=== PATIENT | female | born 1970 | race Caucasian/White ===

== ENCOUNTER 2017-09-04 13:56 | Inpatient (IN) | payer OTHER ==
[~2017-09-04] VITALS: Ht 162.6 cm; Wt 104.0 kg
[2017-10-15] VITALS (11 sets, daily range): BP systolic 96–134; BP diastolic 52–92; PULSE 64–88; TEMP 97.8–98.3
[2017-10-16 00:01] VITALS: BP 109/62; PULSE 67; TEMP 98
[2017-10-16 03:59] VITALS: BP 113/63; PULSE 69; TEMP 97.6
[2017-10-16 06:20] LABS: HEMATOCRIT 29.2 % (37.0-47.0); HEMOGLOBIN 9.3 g/dl (12.5-16.0)
[2017-10-16 07:41] VITALS: BP 96/59; PULSE 69; TEMP 98.7
[2017-10-16] MEDS ORDERED: VITAMIN D31000 I1 PO (07:57)
[2017-10-16] MEDS ORDERED: AMITRIPTYLINE H25 M1 PO (07:57)
[2017-10-16] MEDS ORDERED: B-121000 MCG PO (07:58)
[2017-10-16] MEDS ORDERED: CYMBALTA 30MG30 MG PO ×2 (07:58→08:00)
[2017-10-16] MEDS ORDERED: VOLTAREN GEL 1%1 TU TP (07:59)
[2017-10-16] MEDS ORDERED: CYMBALTA 60MG60 MG PO (07:59)
[2017-10-16] MEDS ORDERED: PROZAC 10MG10 MG PO (08:00)
[2017-10-16] MEDS ORDERED: LYRICA 75MG CAP75 MG PO (08:01)
[2017-10-16] MEDS ORDERED: PROVERA 10MG10 MG PO (08:01)
[2017-10-16] MEDS ORDERED: ROBAXIN 50500 MG/TAB PO (08:01)
[2017-10-16] MEDS ORDERED: ZOFRAN8 MG PO (08:02)
[2017-10-16] MEDS ORDERED: MIRAPEX 0.0.125 MG/T PO (08:02)
[2017-10-16 12:48] VITALS: BP 103/47; PULSE 83; TEMP 98.2
== END 2017-10-16 15:10 | disposition home or self-care (01) | DRG 470 ==
LOC: JCC 10-15 05:05
PROVIDERS: Orthopaedic Surgery
PROC: 0SR90JA Replacement of Right Hip Joint with Synthetic Substitute, Uncemented, Open Approach (ICD-10-PCS; principal; 2017-10-15 07:30)
DX: M16.11 Unilateral primary osteoarthritis, right hip (principal); M79.7 Fibromyalgia
CPT/HCPCS: A4315; A9284; C1713; C1776; J0690; J2250; J2405; J2704; J3010